=== PATIENT | female | born 1965 | race Caucasian/White ===

== ENCOUNTER 2017-09-29 18:25 | Inpatient (IN) | payer OTHER, MEDICAID ==
[~2017-09-29] VITALS: Ht 160 cm; Wt 41.7 kg
[2017-09-29 18:30] VITALS: BP 157/113
--- NOTE | 2017-09-29 18:30 | NUR ---
PT BIBA TO BED 11.
--- NOTE | 2017-09-29 18:54 | NUR ---
PATIENT CAME TO HOSPITAL WITH CAREGIVER FOR SOB AND DIFFICULTY BREATHING. REPORTED BY CAREGIVER THAT AFTER DINNER, PT WAS DRINKING HER SODA, THEN QUICKLY BECAME DIAPHORETIC, PATLE, CLAMMY, AND WAS GASPING FOR AIR. UPON ER EXAM, PT LUNG ARE CLEAR THROUGHOUT, NO RESPIRATORY DISTRESS. O2 SAT AND RESPIRATIONS ARE NORMAL AND REGULAR. MD NOTIFIED. CONTINUE TO MONITOR.
--- NOTE | 2017-09-29 19:15 | NUR ---
TRANSFER OF CARE GIVEN TO DYLAN
--- NOTE | 2017-09-29 19:16 | NUR ---
PT RESTING IN BED, VSS, ON LINE ANALYST, CAREGIVER AT BEDSIDE.
--- NOTE | 2017-09-29 20:38 | NUR ---
PT RESTING IN BED, VSS, NO S/S OF RESP DISTRESS OR ANY DISTRESS NOTED AT THE MOMENT. ADJUNCT PROFESSOR OF ENGLISH CONTINUES AT BEDSIDE.
[2017-09-29 23:26] LABS: ANION GAP 13.9 (8-16); CARBON DIOXIDE 27.4 mmol/L (21-32); POTASSIUM 4.3 mmol/L (3.5-5.1)
[2017-09-29 23:32] LABS: ALBUMIN 3.2 g/dL (3.4-5.0); TOTAL BILIRUBIN 0.3 mg/dL (0.0-1.0)
[2017-09-29 23:37] LABS: HEMATOCRIT 38.5 % (36-48); HEMOGLOBIN 12.6 g/dL (12.0-16.0); MEAN CORPUSCULAR HEMOGLOBIN 29 pg (27-31); MEAN CORPUSCULAR HGB CONC 33 g/dL (33-37); MEAN CORPUSCULAR VOLUME 88 fL (80-94); PLATELET COUNT (AUTO) 143 K/uL (140-450); RED BLOOD CELL COUNT(AUTO) 4.38 MIL/uL (4.20-5.40); WHITE BLOOD COUNT (AUTO) 19.2 K/uL (4.8-10.8)
[2017-09-29 23:49] LABS: EOSINOPHILS % (MANUAL) 0 % (0-4); LYMPHOCYTES % (MANUAL) 5 % (20-46); MONOCYTES % (MANUAL) 4 % (5-12)
[2017-09-30] MEDS ORDERED: LEVOFLOXACIN 500 MG/D5W PREMIX 100 ML IV ONE (01:10)
[2017-09-30] MEDS ORDERED: AZITHROMYCIN 500 MG in DEXTROSE 5% 250 ML IV ONE (01:10)
[2017-09-30] MEDS ORDERED: AZITHROMYCIN 500 MG INJ VIAL IV ONE (01:22)
--- NOTE | 2017-09-30 01:26 | NUR ---
PT TRANSFERED TO TELEMETRY VIA [facility] ACCOMPANIED RNA AND EMT.
--- NOTE | 2017-09-30 01:30 | NUR ---
REPORT GIVEN TO ISELA DUNCAN AT BEDSIDE.
[2017-09-30] MEDS ORDERED: [UNRECOGNIZED DRUG - CODE] (01:33)
[2017-09-30] MEDS ORDERED: BENA5TAB4 PO (01:33)
[2017-09-30] MEDS ORDERED: [UNRECOGNIZED DRUG - CODE] (01:33)
[2017-09-30] MEDS ORDERED: DOCU100C16 PO (01:33)
[2017-09-30] MEDS ORDERED: FURO-572 (01:33)
[2017-09-30] MEDS ORDERED: POTA8CAP (01:33)
[2017-09-30] MEDS ORDERED: CALC-1044 (01:33)
[2017-09-30] MEDS ORDERED: LORA10TA (01:33)
[2017-09-30] MEDS ORDERED: ASCO500T93 (01:33)
[2017-09-30 02:10] VITALS: BP 138/83
[2017-09-30] MEDS ORDERED: ALBUTEROL SULFATE/IPRATROPIU 3 ML SOL IH PRN (02:35)
[2017-09-30] MEDS ORDERED: ONDANSETRON 4 MG/2 ML VIAL IVP PRN (02:35)
[2017-09-30] MEDS ORDERED: ACETAMINOPHEN 325 MG TAB PO PRN (02:35)
--- NOTE | 2017-09-30 02:50 | NUR ---
ADMITTED PATIENT TO THE TELE UNIT, PATIENT AWAKE ALERT NON-VERBAL. NO S/S OF DISTRESS NOTED, RESPIRATION EVEN AND UNLABORED, IV PATENT AND INTACT. TELE MONITOR IS PLACED ON PATIENT. CALL LIGHT WITHIN REACH, SAFETY MEASURE ENSURED, WILL CONTINUE TO MONITOR.
[2017-09-30] MEDS ORDERED: CLINDAMYCIN 600 MG in DEXTROSE 5% 50 ML IV SCH (03:00)
[2017-09-30] MEDS: NACL 0.9% 1,000 ML IV SCH ×2 (03:17→22:48)
[2017-09-30 03:22] LABS: FREE T4 (FREE THYROXINE) 0.87 ng/dL (0.76-1.46); MAGNESIUM 2.3 mg/dL (1.8-2.4); PHOSPHORUS 3.9 mg/dL (2.5-4.9); THYROID STIMULATING HORMONE 2.51 uIU/mL (0.34-3.74)
[2017-09-30] MEDS ORDERED: CLINDAMYCIN 600 MG/4 ML VIAL ONE (03:25)
[2017-09-30] MEDS ORDERED: HEPARIN PER PHARMACY MC PRN (03:35)
[2017-09-30] MEDS ORDERED: ECOTRIN 81 MG TABEC PO ONE (03:35)
[2017-09-30 04:00] VITALS: BP 113/66
--- NOTE | 2017-09-30 04:10 | NUR ---
WAREDRESSER SAID SHE COULDN'T GET THE BLOOD FROM THE PATIENT, AND SHE WOULD COME BACK LATER TO TRY AGAIN.
[2017-09-30] MEDS: LEVOTHYROXINE 0.05 MG TAB PO SCH (05:34)
--- NOTE | 2017-09-30 06:40 | NUR ---
PATIENT HAS BEEN SCREENED AND CATEGORIZED HIGH NUTRITION RISK. PATIENT WILL BE SEEN WITHIN 1-2 DAYS OF ADMISSION. 09/30/17-10/01/17 CAMRON LOGAN MS, RDN
--- NOTE | 2017-09-30 07:20 | NUR ---
RECEIVED PT IN BED. AWAKE. ALERT ORIENTED X1. NO SOB NOTED. NO SIGNS AND SYMPTOMS OF ACUTE PAIN OR DISCOMFORT AT THIS TIME. PT BEDBOUND. SAFETY PRECAUTION IN PLACE. CALL LIGHT WITHIN REACH.
--- NOTE | 2017-09-30 07:33 | NUR ---
ENDORSED PLAN OF CARE TO DAY SHIFT RN, PATIENT IS INCONTINENT AND UNABLE TO COLLECT THE URINE, AND DAY SHIFT RN WILL INFORM THE DR, PATIENT IS IN STABLE CONDITION.
[2017-09-30 07:45] LABS: BASOPHILS # (AUTO) 0.1 K/uL (0.00-0.22); BASOPHILS % (AUTO) 0.5 % (0.0-2.0); EOSINOPHILS # (AUTO) 0.2 K/uL (0-0.4); HEMATOCRIT 36.8 % (36-48); HEMOGLOBIN 12.3 g/dL (12.0-16.0); LYMPHOCYTES # (AUTO) 1.4 K/uL (2.5-16.5); LYMPHOCYTES % (AUTO) 8.5 % (20.5-51.1); MEAN CORPUSCULAR HEMOGLOBIN 29 pg (27-31); MEAN CORPUSCULAR HGB CONC 33 g/dL (33-37); MEAN CORPUSCULAR VOLUME 88 fL (80-94); MONOCYTES # (AUTO) 1.8 K/uL (0.8-1.0); MONOCYTES % (AUTO) 10.7 % (1.7-9.3); NEUTROPHILS # (AUTO) 13.4 K/uL (1.8-7.7); NEUTROPHILS % (AUTO) 79.3 % (42.2-75.2); PLATELET COUNT (AUTO) 133 K/uL (140-450); RED CELL DISTRIBUTION WIDTH 16.2 % (11.6-13.7)
[2017-09-30 07:57] LABS: CHOL/HDL RATIO 3.5 (1-4.5); MAGNESIUM 2.3 mg/dL (1.8-2.4); PHOSPHORUS 3.5 mg/dL (2.5-4.9)
[2017-09-30 07:59] LABS: PROTHROMBIN TIME 10.2 secs (10.8-13.4)
[2017-09-30 08:00] VITALS: BP 111/69
[2017-09-30 08:06] LABS: WHITE BLOOD COUNT (AUTO) 16.9 K/uL (4.8-10.8)
[2017-09-30 08:20] LABS: ANION GAP 13.8 (8-16); CARBON DIOXIDE 26.7 mmol/L (21-32); CREATININE 1.9 mg/dL (0.6-1.3); POTASSIUM 4.5 mmol/L (3.5-5.1)
[2017-09-30] MEDS: DOCUSATE SODIUM 100 MG GELCAP PO SCH ×2 (09:06→21:04)
[2017-09-30] MEDS: ASCORBIC ACID 500 MG TAB PO SCH (09:07)
[2017-09-30] MEDS: ATORVASTATIN 20 MG TAB PO SCH (09:07)
[2017-09-30] MEDS: BENAZEPRIL 5 MG TAB PO SCH (09:07)
[2017-09-30] MEDS: ECOTRIN 81 MG TABEC PO SCH (09:07)
[2017-09-30] MEDS: LACTOBACILLUS RHAMNOSUS GG 1 EACH CAP PO SCH (09:07)
[2017-09-30] MEDS: METOPROLOL 25 MG TAB PO SCH ×2 (09:07→21:04)
[2017-09-30] MEDS ORDERED: hePARIN / DEXT 5% PREMIX 250 ML IV SCH (10:06)
--- NOTE | 2017-09-30 11:02 | NUR ---
09/30/17 RD INITIAL ASSESSMENT COMPLETED PLEASE REFER TO NUTRITION ASSESSMENT UNDER CARE ACTIVITY FOR ESTIMATED NUTRITIONAL NEEDS. RD RECOMMENDATIONS: 1. CONTINUE ON CURRENT DIET TOLERATED. 2. CONSULT RDN PRN. 3. RDN WILL F/U 5-7 DAYS; LOW RISK. CAMRON LOGAN MS, RDN
[2017-09-30 12:00] VITALS: BP 125/69
[2017-09-30] MEDS: CLINDAMYCIN 600 MG in DEXTROSE 5% 50 ML IV SCH ×3 (12:30→23:22)
--- NOTE | 2017-09-30 13:17 | NUR ---
URINE SPECIMEN OBTAINED PER STRAIGHT CATHETER. SENT TO LAB.
--- NOTE | 2017-09-30 13:35 | NUR ---
PT KEPT COMFORTABLE. OFFLOAD BONY PROMINENCE. REPOSITIONED TO CLIENT COMFORT. NO SOB NOTED. NO SIGNS AND SYMPTOMS OF ACUTE PAIN OR DISCOMFORT NOTED AT THIS TIME.
[2017-09-30 15:04] LABS: BARBITURATE, URINE NEG. ng/ml (NEG <=200); BENZODIAZEPINE, URINE NEG. ng/mL (NEG <=200); CANNABINOID, URINE NEG. ng/mL (NEG <=50); COCAINE, URINE NEG. ng/mL (NEG <=300); OPIATE, URINE NEG. ng/mL (NEG <=2000); PHENCYCLIDINE SCREEN,URINE NEG. ng/mL (NEG <=25)
[2017-09-30 15:05] LABS: APPEARANCE,URINE HAZY (CLEAR); BILIRUBIN,URINE NEGATIVE (NEGATIVE); BLOOD, URINE 1+ (NEGATIVE); COLOR,URINE YELLOW (YELLOW); LEUKOCYTE ESTERASE ,URINE 1+ (NEGATIVE); NITRITE, URINE NEGATIVE (NEGATIVE); UGLUCOSE NEGATIVE (NEGATIVE)
[2017-09-30 15:20] LABS: RBC,URINE 3-10 (FEW) /HPF (0-5); WBC,URINE 6-15 (FEW) /HPF (0-5)
[2017-09-30 16:00] VITALS: BP 111/59
--- NOTE | 2017-09-30 18:18 | NUR ---
PT KEPT CLEAN, DRY AND COMFORTABLE, NEEDS ATTENDED. NO SOB NOTED. NO SIGNS AND SYMPTOMS OF ACUTE PAIN OR DISCOMFORT NOTED AT THIS TIME. WILL ENDORSE TO NEXT SHIFT. PT ON STABLE CONDITION. FOR CONTINUITY OF CARE.
--- NOTE | 2017-09-30 19:55 | NUR ---
RECEIVED REPORT FROM CHARGE NURSE RANDALL, PATIENT RESTING IN BED, AWAKE ALERT NON-VERBAL, NO S/S OF DISTRESS NOTED, RESPIRATION EVEN AND UNLABORED, IV PATENT AND INTACT, INFUSING NS AT 50ML/HR. CALL LIGHT WITHIN REACH, SAFETY MEASURE ENSURED, WILL CONTINUE TO MONITOR.
[2017-09-30 20:00] VITALS: BP 118/69
--- NOTE | 2017-09-30 21:05 | NUR ---
PLT COUNT [id number], HELD HEPARIN. OTHER DUE MEDICATION GIVEN, PATIENT TOLERATED WELL. NO S/S OF DISTRESS NOTED, RESPIRATION EVEN AND UNLABORED, CALL LIGHT WITHIN REACH, SAFETY MEASURE ENSURED, WILL CONTINUE TO MONITOR.
--- NOTE | 2017-09-30 23:35 | NUR ---
PATIENT WAS SLEEPING, BUT EASY TO AROUSE, VITAL SIGNS STABLE. NO S/S OF DISTRESS NOTED, RESPIRATION EVEN AND UNLABORED, CALL LIGHT WITHIN REACH, SAFETY MEASURE ENSURED, WILL CONTINUE TO MONITOR.
[2017-10-01] VITALS (7 sets, daily range): BP systolic 111–137; BP diastolic 58–79
--- NOTE | 2017-10-01 02:34 | NUR ---
NO CHANGE IN CONDITION, PATIENT IS SLEEPING, RESPIRATION EVEN AND UNLABORED, NO S/S OF DISTRESS NOTED, CALL LIGHT WITHIN REACH, SAFETY MEASURE ENSURED, WILL CONTINUE TO MONITOR.
--- NOTE | 2017-10-01 04:24 | NUR ---
NO CHANGE IN CONDITION, PATIENT SLEEPING IN BED, NO S/S OF DISTRESS NOTED, RESPIRATION EVEN AND UNLABORED, CALL LIGHT WITHIN REACH, SAFETY MEASURE ENSURED, WILL CONTINUE TO MONITOR.
[2017-10-01] MEDS: CLINDAMYCIN 600 MG in DEXTROSE 5% 50 ML IV SCH ×3 (05:13→18:56)
[2017-10-01] MEDS: LEVOTHYROXINE 0.05 MG TAB PO SCH (06:15)
--- NOTE | 2017-10-01 06:23 | NUR ---
DUE MEDICATION GIVEN, PATIENT TOLERATED WELL. NO S/S OF DISTRESS NOTED, RESPIRATION EVEN AND UNLABORED, CALL LIGHT WITHIN REACH, SAFETY MEASURE ENSURED, WILL CONTINUE TO MONITOR.
--- NOTE | 2017-10-01 07:20 | NUR ---
ENDORSED PLAN OF CARE TO DAY SHIFT NURSE, PATIENT IS RESTING IN BED, IN STABLE CONDITION.
[2017-10-01 07:33] LABS: BASOPHILS # (AUTO) 0.1 K/uL (0.00-0.22); BASOPHILS % (AUTO) 0.7 % (0.0-2.0); EOSINOPHILS # (AUTO) 0.1 K/uL (0-0.4); EOSINOPHILS % (AUTO) 1.5 % (0.0-4.0); HEMOGLOBIN 12.1 g/dL (12.0-16.0); LYMPHOCYTES # (AUTO) 1.7 K/uL (2.5-16.5); MEAN CORPUSCULAR HEMOGLOBIN 29 pg (27-31); MEAN CORPUSCULAR HGB CONC 34 g/dL (33-37); MEAN CORPUSCULAR VOLUME 87 fL (80-94); MONOCYTES # (AUTO) 1.4 K/uL (0.8-1.0); MONOCYTES % (AUTO) 14.1 % (1.7-9.3); NEUTROPHILS # (AUTO) 6.5 K/uL (1.8-7.7); NEUTROPHILS % (AUTO) 66.7 % (42.2-75.2); PLATELET COUNT (AUTO) 142 K/uL (140-450); RED BLOOD CELL COUNT(AUTO) 4.15 MIL/uL (4.20-5.40); RED CELL DISTRIBUTION WIDTH 15.7 % (11.6-13.7); WHITE BLOOD COUNT (AUTO) 9.8 K/uL (4.8-10.8)
[2017-10-01 07:51] LABS: ANION GAP 11.8 (8-16); CARBON DIOXIDE 25.5 mmol/L (21-32); CREATININE 1.8 mg/dL (0.6-1.3); POTASSIUM 4.3 mmol/L (3.5-5.1)
--- NOTE | 2017-10-01 08:00 | NUR ---
PT RECEIVED FROM [facility] NURSE, PT IN BED AWAKE AND CALM. NO REPORTED PAIN OR RESP DISTRESS NOTED. PT IS MENTALLY CHALLENGE. PT IS APHASIC AND UNABLE TO MAKE NEEDS KNOWN. PT IS ABLE TO FOLLOW SOME SIMPLE COMMANDS. IVF INFUSING ORDERED. V/S STABLE.
[2017-10-01 08:29] LABS: MAGNESIUM 2.1 mg/dL (1.8-2.4); PHOSPHORUS 3.9 mg/dL (2.5-4.9)
[2017-10-01] MEDS: ECOTRIN 81 MG TABEC PO SCH (09:12)
[2017-10-01] MEDS: LACTOBACILLUS RHAMNOSUS GG 1 EACH CAP PO SCH (09:18)
[2017-10-01] MEDS: ATORVASTATIN 20 MG TAB PO SCH (09:20)
[2017-10-01] MEDS: METOPROLOL 25 MG TAB PO SCH ×2 (09:21→20:32)
[2017-10-01] MEDS: ASCORBIC ACID 500 MG TAB PO SCH (09:22)
[2017-10-01] MEDS: DOCUSATE SODIUM 100 MG GELCAP PO SCH ×2 (10:40→20:31)
[2017-10-01] MEDS: BENAZEPRIL 5 MG TAB PO SCH (10:41)
--- NOTE | 2017-10-01 11:38 | NUR ---
PT RESTING WELL IN BED. NO ACUTE DISTRESS OR REPORTED CHEST PAIN. ECHO DONE AT THE BED SIDE THIS AM. PT'S JACQUARD CARD CUTTER IS AT THE BED SITE. UPDATE PROVIDED TO PER. ALL SAFETY MEASURES IN PROGRESS. V/S STABLE.
--- NOTE | 2017-10-01 14:33 | NUR ---
PT AWAKE ALERT AND CALM. BP RECHECKED WITH RESULT OF 148/91. RESIDENT NOTIFIED. ORDERS TO DECREASED IVF TO TKO OBTAINED AND IV REDUCED. PT STATES THAT HE WAS INFORMED THAT HE WILL BE GOING HOME TODAY. NO DISCHARGE ORDERS ENTERED IN THE SYSTEM YET. Addendum: 10/01/17 at 1448 by Iwona Cho RN WRONG PT
--- NOTE | 2017-10-01 14:49 | NUR ---
PT IN BED SLEEPING OFF AND ON. NO ACUTE DISTRESS OR ANY CONDITION CHANGES NOTED. NO PAIN OR SOB. PT TOLERATES PUREE WITH NECTAR THICK WELL. NO S/S OF ASPIRATION NOTED. HOB ELEVATED, SIDE RAILS UP X4, NORMAL SINUS RHYTHM ON THE MONITOR.
--- NOTE | 2017-10-01 19:20 | NUR ---
RECEIVED BEDSIDE REPORT FROM DAY SHIFT NURSE LEONIE RN, PT STABLE, NO DISTRESS NOTED, IV TO L HAND 22 G RUNNING NS @ 50 AND L WRIST FA 22G SL, NO S/S OF SOB, INITIAL ASSESSMENT DONE, ALL SAFETY PRECAUTION MET, WILL CONTINUE TO MONITOR.
--- NOTE | 2017-10-01 19:21 | NUR ---
PT IN BED AWAKWE AND CALM. NO ACUTE DISTRESS NOTED. IVF REMAINS INFUSING PER ORDERS. PT IS NORMAL SINUS RHYTHM ON THE MONITORALL SAFETY MEASURES IN PROGRESS. V/S STABLE.
[2017-10-01] MEDS: NACL 0.9% 1,000 ML IV SCH (20:00)
--- NOTE | 2017-10-01 20:47 | NUR ---
DUE MEDICATION GIVEN, PT TOLERATED WELL, NO DISTRESS NOTED, STABLE, CALL LIGHT WITHIN REACH, WILL CONTINUE TO MONITOR.
[2017-10-02] MEDS: CLINDAMYCIN 600 MG in DEXTROSE 5% 50 ML IV SCH ×5 (00:04→21:18)
--- NOTE | 2017-10-02 00:04 | NUR ---
DUE MEDICATION GIVEN, TOLERATED WELL, NO DISTRESS NOTED, CHECKED VS, VS WNL, CALL LIGHT WITHIN REACH,WILL CONTINUE TO MONITOR.
[2017-10-02] MEDS ORDERED: LEVOFLOXACIN 750 MG/D5W PREMIX 150 ML IV SCH (01:00)
[2017-10-02 01:03] VITALS: BP 127/64
--- NOTE | 2017-10-02 01:08 | NUR ---
PT IV DISLODGED, L HAND 22G IV D/C, CANULA INTACT, PT TOLERATED WELL, STABLE, NO DISTRESS NOTED, CALL LIGHT WITHIN REACH, WILL CONTINUE TO MONITOR.
[2017-10-02] MEDS: NACL 0.9% 1,000 ML IV SCH ×2 (03:20→18:52)
[2017-10-02 04:00] VITALS: BP 119/68
[2017-10-02] MEDS: LEVOTHYROXINE 0.05 MG TAB PO SCH (06:25)
[2017-10-02 07:29] LABS: BASOPHILS # (AUTO) 0.1 K/uL (0.00-0.22); BASOPHILS % (AUTO) 1.1 % (0.0-2.0); EOSINOPHILS # (AUTO) 0.2 K/uL (0-0.4); EOSINOPHILS % (AUTO) 2.2 % (0.0-4.0); HEMATOCRIT 37.2 % (36-48); HEMOGLOBIN 12.3 g/dL (12.0-16.0); LYMPHOCYTES # (AUTO) 1.4 K/uL (2.5-16.5); MEAN CORPUSCULAR HEMOGLOBIN 29 pg (27-31); MEAN CORPUSCULAR HGB CONC 33 g/dL (33-37); MEAN CORPUSCULAR VOLUME 88 fL (80-94); MONOCYTES # (AUTO) 0.9 K/uL (0.8-1.0); MONOCYTES % (AUTO) 13.6 % (1.7-9.3); NEUTROPHILS # (AUTO) 4.2 K/uL (1.8-7.7); NEUTROPHILS % (AUTO) 62.1 % (42.2-75.2); PLATELET COUNT (AUTO) 158 K/uL (140-450); RED BLOOD CELL COUNT(AUTO) 4.22 MIL/uL (4.20-5.40); RED CELL DISTRIBUTION WIDTH 15.3 % (11.6-13.7); WHITE BLOOD COUNT (AUTO) 6.9 K/uL (4.8-10.8)
--- NOTE | 2017-10-02 07:30 | NUR ---
RECEIVED PT ON BED AAOX1. PT IS NON-VERBAL, HX OF CEREBRAL PALSY. NO SOB NOTED. NO C/O PAIN AT THIS TIME. IV TO RT HAND PATENT AND INTACT. CHEST CLEAR. ABDOMEN SOFT, BOWEL SOUNDS PRESENT. NO EDEMA NOTED. WILL REPOSITION PT EVERY 2 HRS. BED ON LOW POSITION, 3 SIDE RAILS UP. WILL CONTINUE TO MONITOR PT. Addendum: 10/02/17 at 1041 by Rosi Corral RN IV TO LEFT HAND HAND RATHER.
--- NOTE | 2017-10-02 07:30 | NUR ---
GAVE BEDSIDE REPORT TO DAY SHIFT NURSE CHAYO RN, ENDORSED PLAN OF CARE, PT STABLE NO DISTRESS NOTED, CALL LIGHT WITHIN REACH.
[2017-10-02 07:47] LABS: ANION GAP 13.3 (8-16); CARBON DIOXIDE 24.2 mmol/L (21-32); CREATININE 1.8 mg/dL (0.6-1.3); POTASSIUM 4.5 mmol/L (3.5-5.1)
[2017-10-02 08:00] VITALS: BP 133/71
[2017-10-02 08:03] LABS: MAGNESIUM 1.9 mg/dL (1.8-2.4); PHOSPHORUS 4.8 mg/dL (2.5-4.9)
[2017-10-02] MEDS: BENAZEPRIL 5 MG TAB PO SCH (09:00)
[2017-10-02] MEDS: DOCUSATE SODIUM 100 MG GELCAP PO SCH ×2 (09:00→21:19)
[2017-10-02] MEDS: ECOTRIN 81 MG TABEC PO SCH (09:54)
[2017-10-02] MEDS: ATORVASTATIN 20 MG TAB PO SCH (09:54)
[2017-10-02] MEDS: LACTOBACILLUS RHAMNOSUS GG 1 EACH CAP PO SCH (09:54)
[2017-10-02] MEDS: ASCORBIC ACID 500 MG TAB PO SCH (09:54)
[2017-10-02] MEDS: METOPROLOL 25 MG TAB PO SCH ×2 (09:55→21:19)
--- NOTE | 2017-10-02 10:00 | NUR ---
ECHO ON GOING AT THE BEDSIDE.
[2017-10-02 12:00] VITALS: BP 130/74
--- NOTE | 2017-10-02 12:30 | NUR ---
CLEOCIN IVPB GIVEN, MED WAS SCANNED BUT DID NOT SAVED.
[2017-10-02 16:00] VITALS: BP 117/69
--- NOTE | 2017-10-02 16:00 | NUR ---
PT RESTING. NO SOB NOTED. NO SIGNS OF PAIN.
--- NOTE | 2017-10-02 19:00 | NUR ---
PT AWAKE. NO SOB NOTED. NO SIGNS OF PAIN. WILL ENDORSE TO NEXT SHIFT NURSE FOR CONTINUITY OF CARE.
--- NOTE | 2017-10-02 19:05 | NUR ---
RECEIVED REPORT FROM DAY SHIFT NURSE. AOX0, APHASIC. PT LYING COMFORTABLY IN BED. NO S/S OF PAIN OR DISCOMFORT. IV TO LEFT HAND #22G WITH NS AT 50 ML/HR INFUSING WELL. FALL/SAFETY PRECAUTION IN PLACE. CALL LIGHT WITHIN REACH. WILL CONTINUE TO MONITOR.
[2017-10-02 20:00] VITALS: BP 115/67
--- NOTE | 2017-10-02 21:20 | NUR ---
DUE MEDS GIVEN. PT TOLERATED WELL. NO S/S OF PAIN OR DISCOMFORT. WILL CONTINUE TO MONITOR.
[2017-10-03] VITALS: BP 110/60
--- NOTE | 2017-10-03 00:30 | NUR ---
PT RESTING IN BED WITH EYES CLOSED. RESPIRATIONS REGULAR, EVEN AND UNLABORED. AROUSES EASILY. NO S/S OF DISTRESS. CALL LIGHT WITHIN REACH.
--- NOTE | 2017-10-03 02:42 | NUR ---
PT SLEEPING. NO S/S OF DISTRESS. SAFETY PRECAUTION IN PLACE. CALL LIGHT WITHIN REACH.
[2017-10-03 04:00] VITALS: BP 118/61
--- NOTE | 2017-10-03 04:50 | NUR ---
PT AWAKE. NO S/S OF PAIN OR DISCOMFORT. NO S/S OF RESPIRATORY DISTRESS. CALL LIGHT WITHIN REACH.
[2017-10-03] MEDS: CLINDAMYCIN 600 MG in DEXTROSE 5% 50 ML IV SCH ×2 (05:31→12:04)
[2017-10-03] MEDS: LEVOTHYROXINE 0.05 MG TAB PO SCH (05:31)
--- NOTE | 2017-10-03 07:20 | NUR ---
ENDORSED PT TO DAY SHIFT NURSE. PT IN STABLE CONDITION.
--- NOTE | 2017-10-03 07:21 | NUR ---
RECEIVED REPORT FROM CUSTOMER RELATIONSHIP SPECIALIST NURSE. PATIENT SLEEPING IN BED, AROUSABLE BY VOICE. NO DISTRESS NOTED. DENIES ANY PAIN. RESPIRATIONS EVEN, UNLABORED, ON ROOM AIR. AAOX1, APHASIC, CALM, COOPERATIVE, SKIN COLOR APPROPRIATE TO ETHNICITY, WARM TO TOUCH. IV SITE IS INTACT, PATENT, AND INFUSING IVF PER ORDERS. SKIN IS INTACT. LUNGS CTA ON ALL LOBES. ABDOMEN SOFT, NON-DISTENDED. REVIEWED PLAN OF CARE WITH PATIENT. REINFORCEMENT NEEDED. SAFETY MEASURES IN PLACE, CALL LIGHT WITHIN REACH. WILL CONTINUE TO MONITOR.
[2017-10-03] MEDS: NACL 0.9% 1,000 ML IV SCH (07:22)
[2017-10-03 08:00] VITALS: BP 144/76
[2017-10-03 08:12] LABS: HEMATOCRIT 35.2 % (36-48); HEMOGLOBIN 11.6 g/dL (12.0-16.0); MEAN CORPUSCULAR HEMOGLOBIN 29 pg (27-31); MEAN CORPUSCULAR HGB CONC 33 g/dL (33-37); MEAN CORPUSCULAR VOLUME 88 fL (80-94); PLATELET COUNT (AUTO) 180 K/uL (140-450); RED BLOOD CELL COUNT(AUTO) 4.01 MIL/uL (4.20-5.40); RED CELL DISTRIBUTION WIDTH 15.6 % (11.6-13.7); WHITE BLOOD COUNT (AUTO) 7.6 K/uL (4.8-10.8)
[2017-10-03 08:33] LABS: MAGNESIUM 1.9 mg/dL (1.8-2.4); PHOSPHORUS 4.7 mg/dL (2.5-4.9)
[2017-10-03 08:36] LABS: ANION GAP 12.8 (8-16); CARBON DIOXIDE 21.6 mmol/L (21-32); CREATININE 1.7 mg/dL (0.6-1.3); POTASSIUM 4.4 mmol/L (3.5-5.1)
[2017-10-03 09:16] LABS: EOSINOPHILS % (MANUAL) 1 % (0-4); LYMPHOCYTES % (MANUAL) 21 % (20-46); MONOCYTES % (MANUAL) 12 % (5-12)
[2017-10-03] MEDS: ATORVASTATIN 20 MG TAB PO SCH (10:05)
[2017-10-03] MEDS: DOCUSATE SODIUM 100 MG GELCAP PO SCH (10:06)
[2017-10-03] MEDS: ASCORBIC ACID 500 MG TAB PO SCH (10:06)
[2017-10-03] MEDS: METOPROLOL 25 MG TAB PO SCH (10:06)
[2017-10-03] MEDS: ECOTRIN 81 MG TABEC PO SCH (10:06)
[2017-10-03] MEDS: BENAZEPRIL 5 MG TAB PO SCH (10:06)
[2017-10-03] MEDS: LACTOBACILLUS RHAMNOSUS GG 1 EACH CAP PO SCH (10:07)
--- NOTE | 2017-10-03 10:20 | NUR ---
PATIENT SITTING IN BED COMFORTABLY. NO DISTRESS NOTED. DENIES ANY PAIN. FLACC 0. SCHEDULED MEDICATIONS DUE GIVEN. PATIENT TOLERATED WELL. SAFETY MEASURES IN PLACE, CALL LIGHT WITHIN REACH. WILL CONTINUE TO MONITOR.
[2017-10-03] MEDS ORDERED: LEVO750T2 PO (10:35)
[2017-10-03] MEDS ORDERED: CLIN300C2 PO (10:35)
[2017-10-03] MEDS ORDERED: METO25TA PO (10:35)
[2017-10-03] MEDS ORDERED: ATOR20TA40 PO (10:35)
[2017-10-03] MEDS ORDERED: LACT10CA PO (11:18)
--- NOTE | 2017-10-03 11:41 | NUR ---
This process description writer contact patient's facility engineer/care and cloth tester quality Ldelo Lewis at [facility] to discuss and gather patient's information and services provided to returning facility. Per Ld Patient has been under their care for sometime possible 3-4 years. Patient's [place] [facility] rifle case repairer is Val Loredo , who is already informed according to Ld Lewis that Patient was admitted and will be returning to [facility] after discharge. I informed Ld that patient will be ready for discharge today at about 13:00; she stated that she will coordinate and have facility engineer provide transport back for patient and will have facility engineer be at [facility] garbage pick up worker patient at 13:00. I also requested patient's pharmacy information. Ld stated that [facility] in [place] . flour worker informed Ld that will be calling Mrs. Loredo as a courtesy call to provide her with patient change of status and discharge time to facility. She agreed and thank social worker delinquency prevention.
--- NOTE | 2017-10-03 12:11 | NUR ---
This rfp writer contacted patient's [place] [facility] Machine Edge Bander Val Loredo at , to inform her that patient is ready to discharge today at 13:00; and that Ld Lewis has been informed and has arranged for patient to be metal pickling equipment operator and returned to [facility] after discharge for [facility]. Mrs. Loredo thank social work job titles for information and agreed that patient is to be returned to facility.
--- NOTE | 2017-10-03 13:30 | NUR ---
PATIENT'S CAREGIVE AT [facility] ON UNIT READY TO TAKE PATIENT BACK. PATIENT ALREADY DRESSED AND READY TO GO. DISCHARGE INSTRUCTIONS GIVEN TO PATIENT/CAREGIVER, FOLLOW-UP VISITS, NEW/CHANGED MEDICATIONS, AND FOLLOW UP WITH CARDIO MD FOR ASD FIX. ALL DISCHARGE INSTRUCTIONS PROVIDED IN FAROESE, CAREGIVER'S PREFERRED LANGUAGE. ANSWERED ALL QUESTIONS PATIENT/CAREGIVER HAD. IV SITE REMOVED WITH MINIMAL BLOOD AND LUMEN COMPLETELY INTACT. ID BANDS REMOVED. PATIENT DISCHARGED AT THIS TIME VIA [facility] BOARD AND CARE VIA TRANSPORT VEHICLE PROVIDED BY [facility] AND CARE. PATIENT IN STABLE CONDITION. ESCORTED PATIENT DOWN TO LOBBY VIA WHEELCHAIR AND PATIENT ABLE TO AMBULATE FROM WHEELCHAIR TO TRANSPORT VEHICLE. IN STABLE CONDITION UPON DISCHARGE. Addendum: 10/03/17 at 1500 by Carmelo Campbell RN [ADDITIONAL] ALL BELONGINGS AND PRESCRIPTIONS WITH PATIENT/CAREGIVER UPON DISCHARGE.
== END 2017-10-03 13:30 | disposition home or self-care (01) | DRG 177 ==
LOC: MED 18:25 → MMU 09-30 00:52 → MTU 09-30 01:48
PROVIDERS: ADMIT Student in an Organized Health Care Education/Training Program; ATTEND Student in an Organized Health Care Education/Training Program
DX: J69.0 Pneumonitis due to inhalation of food and vomit (principal); I21.A1 Myocardial infarction type 2; N17.0 Acute kidney failure with tubular necrosis; E44.1 Mild protein-calorie malnutrition; I42.0 Dilated cardiomyopathy; Q21.1 Atrial septal defect; I13.0 Hypertensive heart and chronic kidney disease with heart failure and stage 1 through stage 4 chronic kidney disease, or unspecified chronic kidney disease; I50.9 Heart failure, unspecified; Z68.1 Body mass index [BMI] 19.9 or less, adult; N18.9 Chronic kidney disease, unspecified; R13.10 Dysphagia, unspecified; G80.9 Cerebral palsy, unspecified; F79 Unspecified intellectual disabilities; E03.9 Hypothyroidism, unspecified; Z88.1 Allergy status to other antibiotic agents; Z88.0 Allergy status to penicillin
CPT/HCPCS: 36415; 36600; 71010; 80048; 80053; 80305; 81001; 82803; 83036; 83605; 83735; 83880; 84100; 84439; 84443; 84484; 85025; 85610; 85730; 87040; 87081; 87086; 93005; 99285; C1758; J0456; J1644; J1956; J3490; J7030; J7060; Q0092